=== PATIENT | male | born 1950 | race Caucasian/White ===

== ENCOUNTER 2017-10-02 12:27 | Inpatient (IN) | payer BC, OTHER ==
[~2017-10-02] VITALS: Ht 175.3 cm; Wt 82.1 kg
--- NOTE | ~2017-10-02 | D ---
[facility] [place] [address] DISCHARGE SUMMARY Name: LAZARUS GOMEZ Room #: 441-P [facility] IN .R.#: [id number] Admission: 10/02/17 Attend Phys: Fredrick Finley MD Discharge: 10/04/17 Date of : 54 Report #: [id number] THIS REPORT FOR: //name// CC: Fredrick Finley DATE OF SERVICE: 10/04/2017 SUMMARY OF HISTORY AND PHYSICAL: The patient presented to my office with a 3-day history of progressive fever, shortness of breath and being unable to eat or drink much. He had cough. Clinical exam showed him to be significantly dehydrated and his nasal swab was positive for influenza A antigen. Full inpatient admission was medically indicated. SUMMARY OF HOSPITAL COURSE: He was admitted, started on oseltamivir and started with IV fluids. His temperature natalio to 102.1 his first evening in the hospital, but thereafter the combination of fluids and antipyretics broke his fever. He was discharged with temperature of 99.7. He slept for most of the first 18 hours of his hospital stay and then started feeling quite a bit better. He was able to breathe better after an aerosolized bronchodilator treatment. His blood pressure was 129/66, respirations of 22 and a heart rate of 95 on admission. As he defervesced, his blood pressure dropped and he was tolerating a blood pressure of 95/57 with pulse of 80 and respirations of 18, walking up and down the halls at the time he left. He was eating and drinking well prior to discharge. Oxygen saturations remained in the mid to upper 90s on room air in the hospital. His sodium was 134 on admission and natalio to 140 the next day. His white blood cell count was 5.8 thousand on admission. His hemoglobin was 14.7. He had 79% segmented neutrophils on admission and the next day, he developed bandemia of 9%. Urinalysis showed a trace of ketones and was otherwise negative. Room air pH was 7.471, pCO2 was 31.8 and his pO2 was 70. His chest x-ray was compared to 11/05/2008 and was unremarkable. DISCHARGE DIAGNOSES: 1. Acute influenza A. 2. Clinically he was volume depleted on exam. 3. High fever, dropped to minimal at the time of discharge. 4. Chronic obstructive pulmonary disease. 5. Cancerous thyroid nodule has been removed. 6. Prostate cancer was surgically cured in the past. 7. In 2000, he underwent operative hemorrhoidectomy by Dr. Vicente Tomas. 8. Degenerative disease of multiple joints -- left knee pain has improved on meloxicam. [address] [address] DISCHARGE SUMMARY Name: LAZARUS GOMEZ Room #: 441-P [facility] IN ..#: [id number] Admission: 10/02/17 Attend Phys: Fredrick Finley MD Discharge: 10/04/17 Date of : 54 Report #: [id number] 9. TANJA - untreated, doesn't use/didn't tolerate his CPAP 10. Smoker PLAN: 1 He is discharged on 5 days of oseltamivir 75 mg twice daily, albuterol 0.083% 5 mL vial 2-4 times daily by nebulizer. He took his nebulizer at home with him and he has a compressor at home to use with it. 2. Chantix, on starter pack. 3. He is to resume his usual home dose of Synthroid or name-brand levothyroxine. 4. Meloxicam 15 mg a day is to be resumed. 5. He is to follow up with me in my office in 1 week and to bring all his medications and his inhaler vials. Note: On the day of discharge, he mentioned for the first being short of breath and having trouble breathing. He did not smoke for several days prior to coming to the office. His last cigarette, however, was morning of admission. He said he had not desired a cigarette, but that even as he was smoking his last cigarette and thinking that he really did enjoy the cigarette, he was realizing how short of breath he had become because of cigarettes, and decided he wanted to stop. He had tried Chantix in the distant past, and did feel that it was effective to reduce the desire for smoking cigarette. However, at the time, he did not really wish to quit smoking, and eventually he stopped taking the Chantix and continued smoking. <ELECTRONICALLY SIGNED> By: Fredrick Finley MD 10/05/17 0940 [id number] Fredrick Finley MD /nt
--- NOTE | ~2017-10-02 | EKG ---
[address] [address] ELECTROCARDIOGRAM REPORT Name: LAZARUS GOMEZ Room #: 441-P ADM IN M.R.#: [id number] Admission: 10/02/17 Attend Phys: Fredrick Finley MD Discharge: Date of : 54 Report #: [id number] THIS REPORT FOR: //name// [facility] Test Date: 2017-10-02 Test Time: 17:41:11 Pat Name: LAZARUS GOMEZ Department: Room: 441 P Gender: M Entry Level Mechanical Engineer: Leticia NUÑEZ : 1950 Requested By: Fredrick Finley Order Number: [id number] MD: Mani Cloud Measurements Intervals [place] Rate: 82 P: 51 VT: 135 QRS: -7 QRSD: 102 T: 34 QT: 381 QTc: 445 Interpretive Statements Sinus rhythm Atrial premature complex RSR' in V1 or V2, right VCD or RVH Baseline wander in lead(s) V1 Compared to ECG 11/05/2008 15:48:23 Atrial premature complex(es) now present Electronically Signed On 10-02-2017 23:05:36 CREAM SEPARATOR OPERATOR by Mani Cloud [email or web address] <ELECTRONICALLY SIGNED> By: Mani Cloud MD 10/02/17 2305 [id number] [id number] Mani Cloud MD /EPI
--- NOTE | ~2017-10-02 | H ---
[facility] [address] HISTORY AND PHYSICAL Name: LAZARUS GOMEZ Room #: 441-P [facility] IN M.R.#: [id number] Admission: 10/02/17 Attend Phys: Fredrick Finley MD Discharge: 10/04/17 Date of : 54 Report #: [id number] THIS REPORT FOR: //name// CC: Fredrick Finley DATE OF SERVICE: 10/02/2017 CHIEF COMPLAINT: Acute influenza A, fever and dehydration. HISTORY OF PRESENT ILLNESS: The patient's grandson who lives at home with him had a respiratory illness with cough and fever a week ago. The rail car repairer told them they thought it was influenza, but they do not have an influenza test at their office, so it could not be sure. He did not get Tamiflu. He got better. The patient himself felt well until 3 days ago when he became progressively ill. This morning, his temperature was 103.5. He had not been able to eat anything or drink very much for 2 days because of how bad he felt. He had cough and shortness of breath. He came to my office, where examination showed him to have a fever of 103.5. Clinically, he was dehydrated. His face was flushed and his pharyngeal mucosa was dry. He did not have wheezing. His lungs were clear. His heart sounds were normal. His abdomen was obese, soft and nontender. There was no pedal edema present. Hospitalization as an inpatient was indicated because of his high fever, his shortness of breath, his cough and his influenza A status. PAST MEDICAL HISTORY: He has been a 1- to 2-vpal-g-day smoker for most of his adult life. He has not had pneumonia. He does have COPD findings on clinical examination and office spirometry. 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 He underwent surgery and iodine-131 ablation approximately 2 years ago. Five years ago, he underwent a robot-assisted prostatectomy at the [facility] by Dr. Moura, resulting in a surgical cure of prostate cancer. He has osteoarthritic changes of both knees; his left knee is currently bothering him. He has had wear and tear on both shoulder joints and his occupation is an agricultural mechanic. TANJA diagnosed and he has a CPAP but doesn't use it because he doesn't tolerate it. Prescription medication is limited to levothyroxine, with his doses adjusted by the force adjustment supervisor, Dr. Bolden, that followed him through his thyroid cancer diagnosis, surgery and postoperative treatment. SOCIAL HISTORY: He smokes 1-2 packs of cigarettes a day and has since he was young. He stopped drinking alcohol long ago. He is and lives with his and their grandson. REVIEW OF SYSTEMS: Negative, except for several joints that hurt when he is [facility] [address] [place] [address] HISTORY AND PHYSICAL Name: LAZARUS GOMEZ Room #: 441-P [facility] IN ..#: [id number] Admission: 10/02/17 Attend Phys: Fredrick Finley MD Discharge: 10/04/17 Date of : 54 Report #: [id number] working, Meloxicam helps with the pain, specially his left knee. PHYSICAL EXAMINATION: GENERAL: Exam shows a 66-year-old male who appears acutely ill. SKIN: Turgor is diminished. ASSESSMENT: 1. Acute influenza A. 2. Cough. 3. Chronic obstructive pulmonary disease with symptomatic shortness of breath. 4. Volume depletion. PLAN: The patient is admitted. He is being given oral oseltamivir for his influenza A. A chest x-ray recently returned negative for infiltrates, and so there is no indication for broad-spectrum anti-bacterial agents. He has been treated with intravenous fluids, aerosolized bronchodilators and Tylenol alternated with ibuprofen to help bring his fever down. <ELECTRONICALLY SIGNED> By: Fredrick Finley MD 10/05/17 0942 [id number] Fredrick Finley MD /nt
[2017-10-02 13:50] LABS: ABSOLUTE NEUTROPHILS 4.6 thou/uL (1.4-8.2); BASOPHILS 0.5 % (0.0-2.0); EOSINOPHILS 0.1 % (0.0-3.0); HEMOGLOBIN 14.7 gm/dL (14.0-18.0); LYMPHOCYTES 7.7 % (24.0-44.0); MCH 32.7 pg (26.0-34.0); MCHC 34.3 g/dL (28.0-37.0); MCV 95.3 fL (80.0-100.0); MONOCYTES 11.8 % (1.0-8.0); PLATELET COUNT 151 thou/uL (150-400); POLYS 79.9 % (36.0-66.0); RBC 4.51 mil/uL (4.50-6.00); RDW 13.5 % (10.5-14.5); WBC 5.8 thou/uL (4.0-11.0)
[2017-10-02] MEDS ORDERED: SYNTHROID150 MCG PO (14:01)
[2017-10-02 14:04] LABS: BE(vivo) -1.3 mmol/L (-2 to +3); HCO3 21.7 mmol/L (22.0-26.0); PCO2 31.8 mmHg (35.0-45.0); pH 7.451 (7.360-7.450)
[2017-10-02 14:06] LABS: ALBUMIN 3.6 g/dL (3.4-5.0); CALCIUM 8.6 mg/dL (8.5-10.1); CREATININE 0.9 mg/dL (0.7-1.3); POTASSIUM 4.1 mmol/L (3.5-5.1); TOTAL BILIRUBIN 0.4 mg/dL (<0.1-1.0); TOTAL PROTEIN 7.1 g/dL (6.4-8.2)
[2017-10-02 14:13] VITALS: BP 129/66
[2017-10-02 18:55] LABS: URINE BILIRUBIN NEGATIVE (Negative); URINE BLOOD NEGATIVE (Negative); URINE CLARITY CLEAR; URINE COLOR YELLOW; URINE GLUCOSE-RANDOM* NEGATIVE (Negative); URINE KETONES TRACE (Negative); URINE LEUKOCYTES-REFLEX NEGATIVE (Negative); URINE NITRITE-REFLEX NEGATIVE (Negative); URINE PROTEIN (DIPSTICK) NEGATIVE (Negative); URINE SPECIFIC GRAVITY <= 1.005 (1.005-1.035); URINE UROBILINOGEN 0.2 E.U./dl (0.2-1.0)
[2017-10-02 19:45] VITALS: BP 124/69
[2017-10-03 03:11] VITALS: BP 99/55
[2017-10-03 06:31] LABS: HEMATOCRIT 42.6 % (42.0-52.0); HEMOGLOBIN 14.3 gm/dL (14.0-18.0); MCH 32.3 pg (26.0-34.0); MCHC 33.5 g/dL (28.0-37.0); MCV 96.3 fL (80.0-100.0); PLATELET COUNT 145 thou/uL (150-400); RBC 4.43 mil/uL (4.50-6.00); RDW 13.7 % (10.5-14.5); WBC 4.2 thou/uL (4.0-11.0)
[2017-10-03 06:46] LABS: CALCIUM 8.1 mg/dL (8.5-10.1); CREATININE 0.9 mg/dL (0.7-1.3)
[2017-10-03 07:56] LABS: ABSOLUTE NEUTROPHILS 2.4 thou/uL (1.4-8.2)
[2017-10-03 07:58] LABS: ANISOCYTOSIS 1+
[2017-10-03 08:22] VITALS: BP 124/73
[2017-10-03 17:03] VITALS: BP 108/57
[2017-10-03 21:05] VITALS: BP 126/57
[2017-10-04 05:36] VITALS: BP 108/79
[2017-10-04 08:10] VITALS: BP 114/66
[2017-10-04 15:30] VITALS: BP 95/57
[2017-10-04] MEDS ORDERED: OSELB75 PO (17:44)
[2017-10-04] MEDS ORDERED: CHANTIX1 EACH PO (17:46)
[2017-10-04] MEDS ORDERED: ALBUTEROL2.5 MG/31 INH (17:47)
[2017-10-04 17:56] VITALS: BP 95/57
== END 2017-10-04 18:45 | disposition home or self-care (01) | DRG 153 ==
LOC: 4S 12:27
PROVIDERS: Internal Medicine
DX: J11.1 Influenza due to unidentified influenza virus with other respiratory manifestations (principal); J44.9 Chronic obstructive pulmonary disease, unspecified; E86.9 Volume depletion, unspecified; F17.210 Nicotine dependence, cigarettes, uncomplicated; E86.0 Dehydration; G47.33 Obstructive sleep apnea (adult) (pediatric); M19.019 Primary osteoarthritis, unspecified shoulder; M17.10 Unilateral primary osteoarthritis, unspecified knee; C73 Malignant neoplasm of thyroid gland; Z79.899 Other long term (current) drug therapy; Z85.46 Personal history of malignant neoplasm of prostate
CPT/HCPCS: 10102